=== PATIENT | female | born 1995 | race Native Hawaiian/Other Pacific Islander ===

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

== ENCOUNTER 2017-06-28 13:42 | Emergency (ER) | payer OTHER ==
[~2017-06-28] VITALS: Ht 162.6 cm; Wt 54.9 kg
[2017-06-28 13:48] VITALS: BP 105/81; TEMP 98.4
== END 2017-06-28 14:00 | disposition home or self-care (01) ==
LOC: ED 13:42
DX: B30.9 Viral conjunctivitis, unspecified (principal)

== ENCOUNTER 2020-05-18 17:12 | Emergency (ER) | payer OTHER ==
[~2020-05-18] VITALS: Ht 162.6 cm; Wt 52.2 kg
[2020-05-18 17:30] VITALS: BP 108/71; TEMP 99
[2020-05-18 18:16] LABS: PLATELET COUNT 231 K/uL (152-353)
[2020-05-18 18:25] LABS: POTASSIUM 3.8 mmol/L (3.6-5.2)
== END 2020-05-18 20:00 | disposition home or self-care (01) ==
LOC: ED 17:12
PROVIDERS: Family Medicine
DX: J06.9 Acute upper respiratory infection, unspecified (principal); N39.0 Urinary tract infection, site not specified; Z20.828 Contact with and (suspected) exposure to other viral communicable diseases; F17.290 Nicotine dependence, other tobacco product, uncomplicated
CPT/HCPCS: 36415; 80053; 81000; 81025; 82728; 83605; 85027; 85379; 87040; 87086; 87088; 87502; 87635; 87651; 93005; 99284; G2023; U0003

== ENCOUNTER 2022-07-25 14:40 | Outpatient (CLI) | payer BC, OTHER | END 2022-07-25 19:07 | disposition home or self-care (01) | LOC: US 14:40 | PROVIDERS: ATTEND Registered Nurse | DX: R22.31 Localized swelling, mass and lump, right upper limb (principal) ==